=== PATIENT | female | born 1990 | race Caucasian/White ===

== ENCOUNTER → 2018-02-19 | Outpatient (CLI) | payer BC ==
[2018-02-19 17:48] LABS: HEMATOCRIT 40.7 % (36.0-47.0); HEMOGLOBIN 13.9 g/dL (12.0-15.5); MEAN CORPUSCULAR HEMOGLOBIN 30.3 pg (27.0-33.4); MEAN CORPUSCULAR HGB CONC 34.2 g/dL (32.0-36.0); MEAN CORPUSCULAR VOLUME 88 fl (80-97); PLATELET COUNT 299 10^3/uL (150-450); WHITE BLOOD COUNT 10.8 10^3/uL (4.0-10.5)
[2018-02-19 18:06] LABS: ALANINE AMINOTRANSFERASE 37 U/L (9-52); ALBUMIN 4.9 g/dL (3.5-5.0); ALKALINE PHOSPHATASE 61 U/L (38-126); ANION GAP 16 (5-19); ASPARTATE AMINO TRANSFERASE 24 U/L (14-36); BILIRUBIN,DIRECT 0.4 mg/dL (0.0-0.4); BILIRUBIN,TOTAL 0.6 mg/dL (0.2-1.3); BLOOD UREA NITROGEN 8 mg/dL (7-20); CALCIUM 10.3 mg/dL (8.4-10.2); CARBON DIOXIDE 28 mmol/L (22-30); CHLORIDE 100 mmol/L (98-107); GLUCOSE 93 mg/dL (75-110); POTASSIUM 4.1 mmol/L (3.6-5.0); SODIUM 144.3 mmol/L (137-145)
== END ==
LOC: OD 16:29
PROVIDERS: ATTEND Nurse Practitioner
DX: Z00.00 Encounter for general adult medical examination without abnormal findings (principal); Z79.899 Other long term (current) drug therapy
CPT/HCPCS: 36415; 80053; 82306; 82607; 83036; 84403; 84443; 85027

== ENCOUNTER → 2018-09-11 | Outpatient (CLI) | payer BC ==
--- NOTE | 2018-09-11 09:23 | RADIOLOGY REPORT (SQ) ---
EXAM DESCRIPTION: CT RT UPPER EXTREMITY WITHOUT; OUTSIDE IMAGES FOR PACS COMPLETED DATE/TIME: 09/11/2018 9:03 am REASON FOR STUDY: *W/3-D RECON* DISP FX OF GREATER TUBEROSITY OF RIGHT HUMERUS, INIT (S42.251; SAI RISON IMAGES FOR RIGHT EXTREMITY S42.251A DISP FX OF GREATER TUBEROSITY OF RIGHT HUMERUS, INI COMPARISON: Outside radiographs 09/10/2018, [facility] TECHNIQUE: Axial imaging performed through the rightshoulder with reformatted oblique coronal and ob lique sagittal imaging windowed for bone and soft tissues. Additional 3D shaded surface display images of the right shoulder were generated on an independent [employer] rkstation and saved to pac's All CT scanners at this facility use dose modulation, iterative reconstruction, and/or weight based d osing when appropriate to reduce radiation dose to as low as reasonably achievable (ALARA). [facility]: Dose Right [facility]: CareDose [facility]: Dose Right [facility]: Teradose 4D [facility]: [employer] RADIATION DOSE: CT Rad equipment meets quality standard of care and radiation dose reduction techniq ues were employed. CTDIvol: 13.6 mGy. DLP: 403 mGy-cm. mGy. LIMITATIONS: None. FINDINGS: SOFT TISSUES: Unremarkable BONY ARCHITECTURE: No lytic or blastic lesions. There is an acute right humeral head greater tuberosity fracture, nondisplaced nonangulated, best chava wn on coronal reconstruction images 24-31 and sagittal images 38-43. This involves the distal attach ments of the supra and infraspinatus tendons. No extension of fracture lines into the right humeral neck or humeral head articular surfaces at the glenohumeral joint GLENOHUMERAL JOINT: Normal alignment. Grossly normal cartilage ACROMION AND AC JOINT: Type 1 acromion. No AC joint bony spurring ROTATOR CUFF: Normal thickness on non arthrogram CT GLENOID, LABRUM AND BICEPS: Not visualized on non arthrogram images OTHER: No other significant finding. IMPRESSION: Acute right humeral head greater tuberosity nondisplaced nonangulated fracture. TECHNICAL DOCUMENTATION: JOB ID: [id number] Quality ID # [id number]: Final reports with documentation of one or more dose reduction techniques (e.g., Au tomated exposure control, adjustment of the mA and/or kV according to patient size, use of iterative reconstruction technique) 2010 [employer]- All Rights Reserved Reading location - IP/workstation name: [email or web address]
--- NOTE | 2018-09-11 09:23 | RADIOLOGY REPORT (SQ) ---
EXAM DESCRIPTION: CT RT UPPER EXTREMITY WITHOUT; OUTSIDE IMAGES FOR PACS COMPLETED DATE/TIME: 09/11/2018 9:03 am REASON FOR STUDY: *W/3-D RECON* DISP FX OF GREATER TUBEROSITY OF RIGHT HUMERUS, INIT (S42.251; SAI RISON IMAGES FOR RIGHT EXTREMITY S42.251A DISP FX OF GREATER TUBEROSITY OF RIGHT HUMERUS, INI COMPARISON: Outside radiographs 09/10/2018, [facility] TECHNIQUE: Axial imaging performed through the rightshoulder with reformatted oblique coronal and ob lique sagittal imaging windowed for bone and soft tissues. Additional 3D shaded surface display images of the right shoulder were generated on an independent [employer] rkstation and saved to pac's All CT scanners at this facility use dose modulation, iterative reconstruction, and/or weight based d osing when appropriate to reduce radiation dose to as low as reasonably achievable (ALARA). [facility]: Dose Right [facility]: CareDose [facility]: Dose Right [facility]: Teradose 4D [facility]: [employer] RADIATION DOSE: CT Rad equipment meets quality standard of care and radiation dose reduction techniq ues were employed. CTDIvol: 13.6 mGy. DLP: 403 mGy-cm. mGy. LIMITATIONS: None. FINDINGS: SOFT TISSUES: Unremarkable BONY ARCHITECTURE: No lytic or blastic lesions. There is an acute right humeral head greater tuberosity fracture, nondisplaced nonangulated, best chava wn on coronal reconstruction images 24-31 and sagittal images 38-43. This involves the distal attach ments of the supra and infraspinatus tendons. No extension of fracture lines into the right humeral neck or humeral head articular surfaces at the glenohumeral joint GLENOHUMERAL JOINT: Normal alignment. Grossly normal cartilage ACROMION AND AC JOINT: Type 1 acromion. No AC joint bony spurring ROTATOR CUFF: Normal thickness on non arthrogram CT GLENOID, LABRUM AND BICEPS: Not visualized on non arthrogram images OTHER: No other significant finding. IMPRESSION: Acute right humeral head greater tuberosity nondisplaced nonangulated fracture. TECHNICAL DOCUMENTATION: JOB ID: [id number] Quality ID # [id number]: Final reports with documentation of one or more dose reduction techniques (e.g., Au tomated exposure control, adjustment of the mA and/or kV according to patient size, use of iterative reconstruction technique) 2010 [employer]- All Rights Reserved Reading location - IP/workstation name: [email or web address]
== END ==
LOC: RAD 08:20
PROVIDERS: ATTEND Family Medicine
DX: S42.251A Displaced fracture of greater tuberosity of right humerus, initial encounter for closed fracture (principal); X58.XXXA Exposure to other specified factors, initial encounter

== ENCOUNTER → 2020-08-19 | Outpatient (CLI) | payer BC ==
--- NOTE | 2020-08-19 10:23 | ER RDC ASSESSMENT REPORT ---
Intake - In the Last 14 days Have you traveled outside [place]?: No Have you been in close contact with someone CONFIRMED: Yes Worked in Healthcare?: Yes --Where?: [facility] - Symptoms Subjective Fever([place] feverish): No Chills: No Muscule Aches: No Runny Nose: No Sore Throat: No Cough (New or worsening chronic cough): No Shortness of breath: No Nausea or Vomiting: No Headache: Yes Abdominal Pain: Yes Diarrhea(3 or more loose stools in last 24 hours): No - Do you have any of the following Chronic lung disease: Asthma or emphysema or COPD: No Cystic Fibrosis: No Diabetes: No High Blood Pressure: No Cardiovascular Disease: No Chronic Kidney Disease: No Chronic Liver Disease: No Chronic blood disorder like Sickle Cell Disease: No Weak immune system due to disease or medication: No Neurologic condition that limits movement: No Developmental delay - Moderate to Severe: No Recent (within past 2 weeks) or current : No Morbid Obesity (>100 pounds over ideal weight): No - Objective Temperature: 98.5 F Pulse Rate: 59 Respiratory Rate: 18 Blood Pressure: 108/56 O2 Sat by Pulse Oximetry: 99 Objective: Patient is a well-appearing 30-year-old female, who presents today for COVID-19 screening. Disposition: Home; Selfcare General - General Stated Complaint: Upper respiratory symptoms Mode of Arrival: Ambulatory Information source: Patient Notes: The patient was evaluated during the global COVID-19 pandemic. That diagnosis was suspected/considered upon initial presentation. Their evaluation, treatment, and testing was consistent with current guidelines for patients who present with complaints or symptoms that may be related to COVID-19. Patient reports having close contact exposure to a COVID-19 lab confirmed positive individual. - HPI Patient complains to provider of: Upper Respiratory symptoms Onset: Last week Onset/Duration: Persistent, Worse Quality of pain: Achy Severity: Moderate Pain Level: 3 Context: Generalized body aches Associated symptoms: Headache, Other - Abdominal pain, loss of taste and smell Exacerbated by: Denies Relieved by: Denies Similar symptoms previously: No Recently seen / treated by doctor: No - Related Data Allergies/Adverse Reactions: No Known Allergies Allergy (Unverified 12/03/10 12:28) Past Medical History - Social History Smoking Status: Never Smoker Cigarette use (# per day): No Chew tobacco use (# tins/day): No Smoking Education Provided: No Frequency of alcohol use: Occasional Drug Abuse: None Occupation: trading manager Lives with: Family Patient has suicidal ideation: No Patient has homicidal ideation: No - Past Medical History Cardiac Medical History: Denies: Hx Congestive Heart Failure, Hx Coronary Artery Disease, Hx Heart Attack, Hx Hypertension, Hx Heart Murmur Pulmonary Medical History: Denies: Hx Asthma, Hx Bronchitis, Hx COPD, Hx Pneumonia, Hx Tuberculosis Neurological Medical History: Denies: Hx Cerebrovascular Accident, Hx Seizures GI Medical History: Denies: Hx Hepatitis, Hx Ulcer Musculoskeletal Medical History: Denies Hx Arthritis, Denies Hx Muscle Weakness Infectious Medical History: Denies: Hx Hepatitis Past Surgical History: Denies: Hx Pacemaker Physical Exam - General General appearance: Appears well In distress: None Notes: PHYSICAL EXAMINATION: GENERAL: Well-appearing with No Acute Distress noted. HEAD: Atraumatic, Normocephalic. EYES: Sclera anicteric, Conjunctiva are pink and moist. ENT: Nares patent. Moist mucous membranes. NECK: Normal range of motion, supple without lymphadenopathy. LUNGS: CTAB and equal. No wheezes rales or rhonchi. HEART: Regular rate and rhythm without murmurs. ABDOMEN: Soft, nontender, normal bowel sounds, no guarding. EXTREMITIES: Normal range of motion, no pitting edema. No cyanosis. BACK: No midline or CVA tenderness. No step-off or deformity. NEUROLOGICAL: Cranial nerves grossly intact. Normal speech. Normal gait. PSYCH: Calm, Cooperative, and answers questions appropriately. Normal mood and affect. SKIN: Warm, Dry, Normal color and Turgor, No obvious lesions or rash noted. Diagnostic Results Laboratory Results: Patient notified of NEGATIVE results on Rapid Flu (A & B) and Rapid Strep. Advised Throat Culture and COVID testing are PENDING, and they will be notified of any POSITIVE culture results at a later date/time. Patient has been made aware that is currently taking 3 to 5 days for COVID test results, and that The Department will call to notify them of a POSITIVE COVID-19 test results and a member of the [facility] team will call to notify them of a NEGATIVE COVID-19 result. Patient aware they will be notified by phone, whether they have a NEGATIVE or POSITIVE COVID-19 result. Patient Education/Counseling Counseling/Education: Patient presents with upper respiratory symptoms worrisome for possible COVID- 19. Patient does not have symptoms worrisome as an emergency such as difficulty breathing, shortness of breath, chest pain, pressure, confusion or cyanosis. Patient appears suitable for discharge. Patient's vital signs are stable and patient is nontoxic in appearance. Good return precautions have been discussed with patient, patient verbalized understanding and is agreeable with discharge plan of care at this time. Patient provided COVID-19 discharge instructions to include: As a person under investigation for COVID-19, the [facility] of Health and Human Services, division of public health advises you to adhere to the following guidance until your test results are reported to you. If your test result is positive, you will receive additional information from your provider and your local health department at that time. Remain at home until you are cleared by the health provider or public health authorities. Keep a log of visitors to your home, notify any visitors to your home of your isolation status. If you plan to move to a new address or leave the county, notify the local health department in your County. Call your doctor or seek care if you have an urgent medical need. Before seeking medical care, call ahead to get instructions from the provider before arriving at the medical office clinic or hospital. Notify them that you are being tested for the virus that causes COVID-19 so that arrangements can be made, as necessary, to prevent transmission to others in the healthcare setting. Next, notify the local health department in your county. If a medical emergency arises and you need to call 911, inform dispatch and the first responders that you are being tested for the virus that causes COVID-19. Next, notify the local health department in your county. Guidance for worsening S/SX: For worsening symptoms, patient has been advised to contact their Primary Care Provider, or go to the nearest Emergency Department. RDC Discharge - Discharge Clinical Impression: COVID-19 Screening URI (upper respiratory infection) Qualifiers: URI type: unspecified URI Qualified Code(s): J06.9 - Acute upper respiratory infection, unspecified Condition: Stable Disposition: Home; Selfcare
[2020-08-19 10:48] VITALS: BP 108/56
[2020-08-19 13:13] LABS: A TYPE INFLUENZA AG NEGATIVE (NEGATIVE); B INFLUENZA AG NEGATIVE (NEGATIVE)
== END ==
LOC: RDC 09:57
PROVIDERS: ATTEND Nurse Practitioner Family
DX: J06.9 Acute upper respiratory infection, unspecified (principal); Z20.828 Contact with and (suspected) exposure to other viral communicable diseases; R51.9 Headache, unspecified; R10.9 Unspecified abdominal pain; M79.10 Myalgia, unspecified site; R43.8 Other disturbances of smell and taste
CPT/HCPCS: 87070; 87880; 87804; U0003; C9803; 87635; 99201; 99211

== ENCOUNTER → 2020-09-20 | Outpatient (CLI) | payer BC ==
--- NOTE | 2020-09-20 11:52 | RADIOLOGY REPORT (SQ) ---
EXAM DESCRIPTION: CT HEAD WITHOUT IMAGES COMPLETED DATE/TIME: 09/20/2020 7:44 am REASON FOR STUDY: NEW ONSET HEADACHE R51.9 HEADACHE, UNSPECIFIED COMPARISON: None. TECHNIQUE: Axial images acquired through the brain without intravenous contrast. Images reviewed wi th bone, brain and subdural windows. Additional sagittal and coronal reconstructions were generated. Images stored on PACS. All CT scanners at this facility use dose modulation, iterative reconstruction, and/or weight based d osing when appropriate to reduce radiation dose to as low as reasonably achievable (ALARA). [facility]: Dose Right [facility]: CareDose [facility]: Dose Right [facility]: Teradose 4D [facility]: [employer] RADIATION DOSE: CT Rad equipment meets quality standard of care and radiation dose reduction techniq ues were employed. CTDIvol: 48.9 mGy. DLP: 861 mGy-cm. LIMITATIONS: None. FINDINGS: There is no acute intracranial hemorrhage, vascular territorial infarct, extra-axial fluid collection, mass effect or midline shift. The mckenna-white matter differentiation is preserved. The caliber of the ventricles is concordant with the degree of sulcation. There is no effacement of the cerebral sulci or basal subarachnoid cisterns. The orbits and globes are intact. The paranasal sinuses and mastoid air cells are clear. There is n o calvarial fracture. IMPRESSION: No acute intracranial abnormality. EVIDENCE OF ACUTE STROKE: NO. COMMENT: Quality ID # [id number]: Final reports with documentation of one or more dose reduction techniques (e.g., Automated exposure control, adjustment of the mA and/or kV according to patient size, use of iterative reconstruction technique) TECHNICAL DOCUMENTATION: JOB ID: [id number] 2010 [employer]- All Rights Reserved Reading location - IP/workstation name: [email or web address]
== END ==
LOC: RAD 07:39
PROVIDERS: ATTEND Nurse Practitioner
DX: R51.9 Headache, unspecified (principal)
CPT/HCPCS: 70450